=== PATIENT | female | born 1965 | race Caucasian/White ===

== ENCOUNTER → 2018-04-04 10:07 | Outpatient (CLI) | payer BC, SELFPAY ==
[2018-04-04 11:47] LABS: ALT 29 U/L (12-78); AST 12 U/L (15-37); Albumin 3.6 g/dL (3.4-5.0); Alkaline Phosphatase 42 U/L (46-116); Anion Gap 7.5 mmol/L (3-11); BUN 15 mg/dL (7-18); Bilirubin, Total 0.3 mg/dL (0.2-1.0); CO2 29.5 mmol/L (21.0-32.0); CREATININE 0.85 mg/dL (0.55-1.02); Calcium 8.9 mg/dL (8.5-10.1); Chloride 107 mmol/L (98-107); Glucose 87 mg/dL (70-100); HDL Cholesterol 54 mg/dL (40-60); LDL CHOLESTEROL 107 mg/dL (<100); Potassium 4.7 mmol/L (3.5-5.1); Sodium 144 mmol/L (136-145); Total Protein 6.8 g/dL (6.4-8.2); Triglyceride 45 mg/dL (30-150)
[2018-04-04 12:09] LABS: Cholesterol 168 mg/dL (50-200)
== END ==
DX: Z00.00 Encounter for general adult medical examination without abnormal findings (principal); E78.2 Mixed hyperlipidemia
CPT/HCPCS: 36415; 80053; 80061; 83721

== ENCOUNTER 2018-07-10 00:37 | Outpatient (CLI) | payer BC, SELFPAY ==
--- NOTE | 2018-07-10 07:50 | DI.MAMMO_ITS ---
SYMPTOM/DIAGNOSIS: SCREENING, Z12.31 MAMMOGRAM: 07/10/18 Mammograms were interpreted according to the usual protocol including computer analysis with CAD system, tomosynthesis and C view imaging. The breasts are heterogeneously dense. No dominant mass or clumped microcalcification identified in either breast. The current examination is compared with previous examinations including May 2017 and there has been no gross interval change in appearance in comparison with the previous studies. CONCLUSION: No specific evidence of malignancy at this time. Routine screening examinations are suggested at yearly intervals due to the family history of breast carcinoma. Category 1. Breast density category C. MQSA ASSESSMENT OF FINDINGS: Negative. Category 1. Patient will receive a letter notifying them of these results. Bi-RADS category C. The breasts are heterogeneously dense, which may obscure small masses.
== END 2018-07-10 00:57 ==
DX: Z12.31 Encounter for screening mammogram for malignant neoplasm of breast (principal); Z80.3 Family history of malignant neoplasm of breast
CPT/HCPCS: 77063; 77067

== ENCOUNTER 2019-11-09 09:15 | Outpatient (CLI) | payer BC, SELFPAY ==
[2019-11-09 10:45] LABS: ALT 24 U/L (14-59); AST 16 U/L (15-37); Alkaline Phosphatase 37 U/L (46-116); Anion Gap 6.1 mmol/L (3-11); BUN 15 mg/dL (7-18); Bilirubin, Total 0.5 mg/dL (0.2-1.0); CO2 32.9 mmol/L (21.0-32.0); CREATININE 0.91 mg/dL (0.55-1.02); Calcium 9.3 mg/dL (8.5-10.1); Chloride 105 mmol/L (98-107); Glucose 77 mg/dL (74-106); Potassium 4.1 mmol/L (3.5-5.1); Sodium 144 mmol/L (136-145); Total Protein 7.3 g/dL (6.4-8.2)
== END 2019-11-09 09:35 ==
DX: Z00.00 Encounter for general adult medical examination without abnormal findings (principal); Z13.228 Encounter for screening for other metabolic disorders
CPT/HCPCS: 36415; 80053

== ENCOUNTER 2020-03-08 09:42 | Outpatient (REF) | payer BC, SELFPAY ==
--- NOTE | 2020-03-08 09:30 | PAPFT_PTH ---
PATIENT: Yolanda Chavez LOC: [facility] U#:[id number] AGE/SX: 54/F ROOM: RE03/08/[address]: KENN Raymond : 1965 BED: DIS: 03/08/2020 SPEC #: [id number] RECD: 03/08/20 17:17 STATUS: ALYSON REErlinda #: [id number] DAVID: 03/08/20 09:[address]: Siri Porter DEPT: [facility] Cytology RECD BY: Clarissa Eubanks ENTERED: 03/08/20 17:17 SP TYPE: PAPFT ANABELLE DR: Huma Jay APRN Tissues: 1 - CX/ENDOCX FOR PAP SMEARS Procedures: PAP THIN PREP/UVM Screening HPV DNA PROBE Comments: [id number]
== END 2020-03-08 10:02 ==
LOC: LBN 09:42
PROVIDERS: Visit Provider Nurse Practitioner Family
DX: Z12.4 Encounter for screening for malignant neoplasm of cervix (principal); Z11.51 Encounter for screening for human papillomavirus (HPV)
CPT/HCPCS: 88142; 87624

== ENCOUNTER 2020-03-16 02:23 | Outpatient (CLI) | payer BC, SELFPAY ==
--- NOTE | 2020-03-16 06:45 | DI.US_ITS ---
EXAM: US PELVIS TRANSVAGINAL CLINICAL HISTORY: Menorrhagia,n92.0,excessive,frequent menstruation. TECHNIQUE: Transabdominal and transvaginal pelvic ultrasound was performed using standard protocol. COMPARISON: No exams were available for comparison FINDINGS: KIDNEYS: Kidneys are symmetric in size. No evidence of renal calculi. No evidence of hydronephrosis. No renal mass or cyst identified. UTERUS: Position: Anteverted. Size: 10 long by 3.8 AP by 4.3 transverse cm Endometrium: 0.7 cm. Normal for patient's menstrual status. Myometrium: Heterogeneous myometrium with at least 1 discrete fibroid measuring 1.6 x 1.1 x 1.3 cm lo cated in the anterior body. Cervix: Unremarkable. OVARIES: Right: 3.4 x 2.2 x 2.2 cm Cyst or mass: 2.1 x 1.9 x 1.8 cm simple cyst. Left: Status post left oophorectomy. DOPPLER: Color: Symmetric and uniform flow to the right ovary. No hyperemia. CUL-DE-SAC: Free fluid: None. Other: None. IMPRESSION: 1. Normal sonographic appearance of the kidneys. 2. Fibroid uterus. 3. Status post left oophorectomy. Simple right ovarian cyst which is likely physiologic. DATA REPOSITORY:
== END 2020-03-16 02:43 ==
PROVIDERS: Visit Provider Nurse Practitioner Family
DX: N92.0 Excessive and frequent menstruation with regular cycle (principal); D25.9 Leiomyoma of uterus, unspecified; Z90.721 Acquired absence of ovaries, unilateral; D27.0 Benign neoplasm of right ovary
CPT/HCPCS: 76830; 76856

== ENCOUNTER 2020-03-23 09:41 | Outpatient (REF) | payer BC, SELFPAY ==
--- NOTE | 2020-03-23 09:25 | ENDOMET_PTH ---
PATIENT: Yolanda Chavez LOC: N U#:[id number] AGE/SX: 54/F ROOM: RE03/23/[address]: Kaley Mitchell DO : 1965 BED: DIS: 03/23/2020 SPEC #: [id number] RECD: 03/23/20 12:42 STATUS: ALYSON REQ #: [id number] DAVID: 03/23/20 09:[address]: Kaley Mitchell DEPT: Surgical Specimen RECD BY: Clarissa Eubanks ENTERED: 03/23/20 12:43 SP TYPE: Endomet OTHR DR: Huma Jay APRN Tissues: 1 - ENDOMETRIUM BX/MESSI Procedures: GROSS AND MICRO LEVEL 4 Comments: [id number]
== END 2020-03-23 10:01 ==
LOC: LBN 09:41
PROVIDERS: Visit Provider Obstetrics & Gynecology
DX: Z12.79 Encounter for screening for malignant neoplasm of other genitourinary organs (principal); N95.1 Menopausal and female climacteric states
CPT/HCPCS: 88305

== ENCOUNTER 2020-03-24 02:57 | Outpatient (CLI) | payer BC, SELFPAY ==
[2020-03-24 13:31] LABS: ALT 21 U/L (14-59); AST 15 U/L (15-37); Albumin 3.7 g/dL (3.4-5.0); Alkaline Phosphatase 35 U/L (46-116); Anion Gap 8.6 mmol/L (3-11); BUN 16 mg/dL (7-18); Bilirubin, Total 0.5 mg/dL (0.2-1.0); CO2 28.4 mmol/L (21.0-32.0); CREATININE 0.96 mg/dL (0.55-1.02); Chloride 103 mmol/L (98-107); Glucose 85 mg/dL (74-106); Potassium 4.3 mmol/L (3.5-5.1); Sodium 140 mmol/L (136-145); TSH 1.84 uIU/mL (0.36-3.74); Total Protein 6.8 g/dL (6.4-8.2)
[2020-03-24 18:23] LABS: FSH 20.4 mIU/mL (See Note)
== END 2020-03-24 03:17 ==
PROVIDERS: Visit Provider Obstetrics & Gynecology
DX: Z00.00 Encounter for general adult medical examination without abnormal findings (principal); N95.0 Postmenopausal bleeding
CPT/HCPCS: 36415; 80053; 83001; 84443

== ENCOUNTER 2020-03-30 02:51 | Outpatient (CLI) | payer BC, SELFPAY ==
--- NOTE | 2020-03-30 11:01 | DI.MAMMO_ITS ---
EXAM: MG MAMMO SCREENING CLINICAL HISTORY: screening,Z12.39 TECHNIQUE: Mammograms were interpreted according to the usual protocol including computer analysis w [facility] CAD system, tomosynthesis and C-view imaging. COMPARISON: FINDINGS: The breasts are heterogeneously dense. No dominant mass or clumped microcalcification is identified in either breast. The current examination is compared with previous examinations including June 2018 and there has been no gross interval change in appearance comparison with the prior studies. IMPRESSION: No specific evidence of malignancy at this time. Routine screening examinations are suggested at yea rly intervals due to the family history of breast carcinoma. BI-RADS Cat 1 - Negative: Breast Density - Category C - Heterogeneously dense:
== END 2020-03-30 03:11 ==
PROVIDERS: Visit Provider Nurse Practitioner Family
DX: Z12.31 Encounter for screening mammogram for malignant neoplasm of breast (principal); R92.2 Inconclusive mammogram
CPT/HCPCS: 77063; 77067

== ENCOUNTER 2020-07-05 08:59 | Emergency (ER) | payer BC, SELFPAY ==
[2020-07-05 09:03] VITALS: BP 126/73; PULSE 79; RESP 18; TEMP 36.5; O2SAT 100
--- NOTE | 2020-07-05 09:12 | ED.GENADUL_ITS ---
Discharge Plan Disposition Patient Disposition: HOME Discharge Details Clinical Impression: Knee pain Primary Care Provider: Huma Jay ED Provider: Jarod Mcmanus Home Meds and New Rx's Prescriptions: Continued multivitamin [Daily Multi-Vitamin] 1 EACH tablet 1 ea PO DAILY RF: 0 loratadine-pseudoephedrine [Loratadine-D] 10-240 mg tablet extended release 24 hr 1 tab PO DAILY Qty: 30 RF: 6 Discharge Instructions Instructions: Muscle Strain (ED), Knee Pain (ED) Additional Instructions: X-ray and ultrasound did not reveal any obvious emergent process. Wear William wrap as needed, advance activity as tolerated. Crutches were declined at this time. Rest, elevate, cool and/or warm compresses every 2 hours for 20 minutes. Over-t he-counter Tylenol and/or Motrin as directed for discomfort. Please watch for new or worsening symptoms and return to the ER for any concerns. If you are not improving in the next 5-7 days, I have given you the name and number of our local orthopedic team. Otherwise I recommend following up with your primary care provider. Referrals: Jelani Meza MD [ [facility] STAFF PHYSICIAN] - Medical Decision Making 55-year-old female reports knee aching for the past several days, stepped awkwardly yesterday increasing pain now in the posterior calf. There is no warmth, erythema, swelling. There is no bony point tenderness. Patient is afebrile, she is without tachycardia or hypoxia. She appears well, nontoxic. Limited extension to full flexion. Clinically she has posterior calf discomfort as well as a positive Homans' sign. This certainly could be muscular in nature would like to rule out any bony abnormality and/or potential. Will obtain 4 view x-ray of the left knee as well as a left lower extremity ultrasound. Patient comfortable with this plan. Ultrasound read by radiology as negative for DVT. No evidence of Lee's cyst. X-ray read by radiology as minimal arthritic changes but no acute process. Discussed findings with patient. She is relieved. As above, negative for fracture, dislocation, DVT or Lee's cyst. Clinically no evidence of knee instability or septic joint. Discussed treatment options. Will place a William wrap. Patient declines crutches. We discussed conservative therapy and the im portance of following up with orthopedic in the next 5-7 days if she is not receiving adequate relief with conservative care. Otherwise she will follow up with her primary care provider. She was encouraged to return to the ER for new or worsening symptoms. Medical Records Medical records reviewed: Yes I reviewed the patient's medical records. HPI General Mode of arrival: ambulatory . Date/Time Provider Initiated Documentation: 07/05/20 09:00 . Limitations to Documentation: no limitations . Information obtained by: patient . HPI Narrative: This is a 55-year-old female who denies significant medical history. She reports that her left knee has been aching for several days, nontraumatic. It was feeling like it could potentially get out. Subsequently yesterday she states that she stepped awkwardly, falling to the ground. Now she reports the pain is worse in the posterior aspect of the knee and calf. She denies any other injury when she fell she denies chest pain or shortness of breath. Denies history of PE or DVT. She states the pain is mild at rest but worse with movement or bearing weight. She did take [id number] medication last night with some relief. She denies any pain radiating up her thigh into her hip or down from her calf into her ankle or foot. Denies fever, redness, warmth. Related Data Home Medications Medication Instructions Recorded Confirmed multivitamin [Daily Multi-Vitamin] 1 ea PO DAILY 11/02/13 07/05/20 loratadine-pseudoephedrine ER 10 1 tab PO DAILY #30 tab-cap 02/18/20 07/05/20 mg-240 mg tablet,extended [id number] Previous Rx's Medication Instructions Recorded loratadine-pseudoephedrine ER 10 1 tab PO DAILY #30 tab-cap 25/20 mg-240 mg tablet,extended [id number] Allergies Allergy/AdvReac Type Severity Reaction Status Date / Time red (food color) Allergy Intermediate Mouth Verified 07/05/20 09:08 chino, tongue swelling etienne flavor Allergy Unknown Verified 07/05/20 09:08 erythromycin base AdvReac Intermediate Stomache Verified 07/05/20 09:08 General Stated Complaint: Orthopedic ZAIDA: 3 Review of Systems Constitutional Constitutional: Denies fever(s) and Denies weakness Cardiovascular Cardiovascular: Denies chest pain and Denies dyspnea Respiratory Respiratory: Denies dyspnea Musculoskeletal Musculoskeletal: Denies back pain, Reports arthralgias, Denies joint swelling, Denies numbness and Denies tingling Integumentary/Breasts Skin/Breast: Denies erythema Neurologic Neurologic: Denies numbness, Denies tingling and Denies weakness [facility] Medical History Allergic reaction (09/19/15) Chronic cough (10/16/16) Chronic type B viral hepatitis Hep B surface antigen Negative during 2000 Family history of malignant neoplasm of ovary (10/28/12) Family hx-breast malignancy (10/28/12) Globus sensation (11/04/13) Increased body mass index (BMI) Menopause syndrome Otalgia (11/04/13) Perimenopause Post-menopausal bleeding Tonsillitis (11/04/13) Surgical History Colonoscopy - IV Sedation (09/24/16) Oophrectomy, Left (~1997) Dermoid cyst varicosities removed Family History Mother , 63 Breast cancer Ovarian cancer Father , 78 Heart disease Prostate cancer Kidney cancer, primary, with metastasis from kidney to other site Sister No problems noted. Brother Diabetes Heart disease Maternal Grandfather No problems noted. Paternal Grandfather No problems noted. Maternal Grandmother Uterine cancer Paternal Grandmother Heart disease Son No problems noted. Daughter No problems noted. Social History Smoking/Tobacco Use Status: Former Tobacco Use Second Hand Exposure: Yes Smoking risk assessment performed?: Yes Alcohol Intake: former Drug use: Never Substance use type: does not use Counseling given: No Counseling provided: none Caregiver/Support person: No Household members: spouse and children Housing: house Communication Needs: None Do you need help understanding health information?: Never Pets and animals: Yes Pets and animals: cat(s) and dog(s) Sexually active: Yes Do you think of yourself as: straight/heterosexual Current gender identity: female What is your relationship status?: How often do you talk on the phone with friends or family?: once per week How often do you get together with friends or relatives?: once per week How often do you attend congregation or mu-ism services?: decline to answer Do you belong to any clubs or organized social groups?: decline to answer Panel score (0-1 are the most socially isolated patients): 1 What type of physical activity do you participate in: weight lifting and other Details: gym Duration: decline to answer Frequency: 3-4 times per week Consuelo/Adventist: No Special consuelo needs: No Seatbelt use: always Helmet use: Yes Helmet use: always Drive intox or ride w/intox public transit bus driver: No Do you feel safe at home: Yes Do you feel safe in your relationship?: Yes Exam Const General: cooperative, healthy appearing, comfortable and no acute distress Orientation: alert and awake HENMT Head: normal to inspection, normocephalic and atraumatic Mouth: moist mucous membranes Eyes Conjunctivae: conjunctivae normal Sclera: sclerae normal Neck Neck: normal visual inspection, full ROM, trachea midline and supple Resp Effort & Inspection: normal respiratory effort and able to speak in complete sentences Auscultation: clear to auscultation bilaterally Cardio Rate: regular rate Rhythm: regular rhythm Skin General skin exam: no rashes or lesions noted Neuro General: patient alert, patient awake, moves all extremities and no focal motor deficits Sensory Exam: no sensory deficits noted Extrem Right upper extremity: normal to inspection, full ROM and normal capillary refill Left upper extremity: normal to inspection, full ROM and normal capillary refill Right lower extremity: normal to inspection, full ROM and normal capillary refill Left lower extremity: normal capillary refill, hip/thigh Details: normal to inspection and normal ROM; no tenderness and no swelling, knee Details: normal to inspection, tenderness, abnormal ROM (Full flexion, limited extension), knee ligament exam normal and other (Positive Homans' sign); no swelling and no ecchymosis, lower leg Details: normal to inspection, tenderness Location: of the posterior calf and no edema; no erythema, no localized swelling and no palpable cords and ankle Details: normal to inspection; no tenderness and no swelling; no cyanosis and no edema Psych Appearance: grossly normal Mental Status: mental status grossly normal Course Vital Signs Vital signs: Vital Signs Temperature 36.5 C 07/05/20 09:03 Pulse 79 07/05/20 09:03 Respiratory Rate 18 07/05/20 09:03 Blood Pressure 126/73 07/05/20 09:03 Pulse Oximetry 100 07/05/20 09:03 Temperature 36.5 C 07/05/20 09:03 Temperature Source Skin 07/05/20 09:03 Pulse 79 07/05/20 09:03 Respiratory Rate 18 07/05/20 09:03 Respiratory Effort Non-Labored 07/05/20 09:07 Blood Pressure 126/73 07/05/20 09:03 Blood Pressure Position Sitting 07/05/20 09:03 Pulse Oximetry 100 07/05/20 09:03 Oxygen Delivery Method Room Air 07/05/20 09:03 Oxygen Flow Rate 0 07/05/20 09:03 Pain Level 8 07/05/20 09:03 Comment 07/05/20 09:03
--- NOTE | 2020-07-05 09:15 | DI.RAD_ITS ---
EXAM: XR KNEE LT 4V+ CLINICAL HISTORY: Stepped awkwardly, pain. TECHNIQUE: 2D digital imaging was performed. COMPARISON: No exams were available for comparison FINDINGS: BONES: No acute fracture is present. No bony destructive lesion is seen. JOINTS: The knee is normally aligned. No joint effusion is seen. Mild degenerative changes are seen i n the spine characterized by periarticular spurring. SOFT TISSUE: Normal. IMPRESSION: No acute fracture or dislocation. DATA REPOSITORY: RADIATION DOSE DELIVERED:
--- NOTE | 2020-07-05 09:15 | DI.US_ITS ---
EXAM: US LOWER EXTREMITY VENOUS LT CLINICAL HISTORY: Calf pain, posterior knee pain TECHNIQUE: Left lower extremity venous ultrasound performed using grayscale, color-flow, and spectra l Doppler analysis. COMPARISON: No exams were available for comparison FINDINGS: The left common femoral, femoral and popliteal veins demonstrate normal compressibility, augmentation , and color Doppler. The posterior tibial veins are patent. The saphenofemoral junction is unremarka ble. There is no evidence of a Lee cyst. The soft tissues are unremarkable. IMPRESSION: No DVT. Findings were discussed with the emergency department on the date of the examination. DATA REPOSITORY:
== END 2020-07-05 11:25 | disposition home or self-care (01) ==
PROVIDERS: Emergency Provider Physician Assistant
DX: M25.562 Pain in left knee (principal)
CPT/HCPCS: 99284; 73564; 93971; 99283

== ENCOUNTER 2021-02-06 19:08 | Outpatient (REF) | payer BC, SELFPAY | END 2021-02-06 19:09 | disposition home or self-care (01) | LOC: LBN 19:08 | DX: N89.8 Other specified noninflammatory disorders of vagina (principal); N39.0 Urinary tract infection, site not specified | CPT/HCPCS: 87086; 87480; 87510; 87660 ==

== ENCOUNTER 2021-03-31 03:50 | Outpatient (CLI) | payer BC, SELFPAY ==
--- NOTE | 2021-03-31 10:32 | DI.MAMMO_ITS ---
Exam(s) MAMMO SCREENING EXAM: MAMMO SCREENING CLINICAL HISTORY: screening,Z12.39 TECHNIQUE: Mammograms were interpreted according to the usual protocol including computer analysis w [facility] CAD system, tomosynthesis and C-view imaging. COMPARISON: FINDINGS: The breasts is are heterogeneously dense. No dominant mass or suspicious clumped microcalcification is identified in either breast. Current examination is compared with previous examinations including March 2020 and there has been no gross interval change appearance comparison with the prior studies . IMPRESSION: No specific evidence of malignancy at this time. Routine screening examinations are suggested at yea rly intervals due to the family history of breast carcinoma. BI-RADS Category 1 - Negative Breast Density - Category C - Heterogeneously dense
== END 2021-03-31 04:10 ==
PROVIDERS: Visit Provider Nurse Practitioner Family
DX: Z12.31 Encounter for screening mammogram for malignant neoplasm of breast (principal); Z80.3 Family history of malignant neoplasm of breast
CPT/HCPCS: 77063; 77067

== ENCOUNTER 2021-07-12 03:31 | Outpatient (CLI) | payer BC, SELFPAY ==
[2021-07-12 07:38] LABS: HCT 39.4 % (36.0-46.0); HGB 12.6 g/dL (11.2-15.7); MCH 29.2 pg (27.0-33.0); MCV 91.4 fL (80-95); MPV 12.3 fL (8.0-11.0); Platelet Count 180 10^3/uL (130-400); RBC 4.31 10^6/uL (3.93-5.22); RDW 12.7 % (11.7-14.6)
[2021-07-12 08:38] LABS: ALT 22 U/L (14-59); AST 12 U/L (15-37); Albumin 4.1 g/dL (3.4-5.0); Alkaline Phosphatase 50 U/L (46-116); Anion Gap 6.9 mmol/L (3-11); BUN 16 mg/dL (7-18); Bilirubin, Total 0.4 mg/dL (0.2-1.0); CO2 31.1 mmol/L (21.0-32.0); CREATININE 0.9 mg/dL (0.55-1.02); Calcium 9.3 mg/dL (8.5-10.1); Chloride 109 mmol/L (98-107); Creatine Kinase 97 U/L (26-192); Glucose 81 mg/dL (74-106); Potassium 4.1 mmol/L (3.5-5.1); Sodium 147 mmol/L (136-145); TSH (W/Ref FT4) 3.03 uIU/mL (0.36-3.74); Total Protein 7.6 g/dL (6.4-8.2)
[2021-07-12 08:45] LABS: C-Reactive Protein < 0.05 mg/dL (0.0-0.3)
[2021-07-12 08:59] LABS: Calculated LDL 83 mg/dL (<100); Cholesterol 151 mg/dL (<200); HDL Cholesterol 58 mg/dL (40-60); Triglyceride 51 mg/dL (<150)
[2021-07-13 10:00] LABS: Lyme Ab w Rflx to Lyme Confirm Negative (Negative)
[2021-07-13 11:06] LABS: Hepatitis C Ab w Rflx HCV PCR Negative (Negative)
[2021-07-13 11:23] LABS: HIV-1/2 Ag & Ab Screen Negative (Negative)
== END 2021-07-12 03:32 | disposition home or self-care (01) ==
LOC: LBO 03:32
PROVIDERS: Visit Provider Family Medicine
DX: I10 Essential (primary) hypertension (principal); M25.59 Pain in other specified joint; M79.18 Myalgia, other site; M25.562 Pain in left knee; Z13.6 Encounter for screening for cardiovascular disorders; Z13.29 Encounter for screening for other suspected endocrine disorder; Z11.59 Encounter for screening for other viral diseases; Z11.4 Encounter for screening for human immunodeficiency virus [HIV]
CPT/HCPCS: 36415; 80053; 80061; 82550; 85027; 86803; 87389; 84443; 86140; 86618

== ENCOUNTER 2021-09-20 14:42 | Outpatient (CLI) | payer BC, SELFPAY ==
--- NOTE | 2021-09-20 14:30 | DI.RAD_ITS ---
Exam(s) XR SHOULDER RT COMPLETE 2+V EXAM: XR SHOULDER RT COMPLETE 2+V CLINICAL HISTORY: shoulder pain. TECHNIQUE: 2D digital imaging was performed. COMPARISON: No exams were available for comparison FINDINGS: No evidence of fracture or dislocation. No obvious degenerative changes in the glenohumeral joint al though there does appear to be a small degenerative cysts in the greater tuberosity, similar to the o pposite side. There no calcifications in the non diminished subacromial space. Some degenerative ch anges noted in the AC joint. Bone density normal. IMPRESSION: DATA REPOSITORY: RADIATION DOSE DELIVERED:
--- NOTE | 2021-09-20 14:30 | DI.RAD_ITS ---
Exam(s) XR SHOULDER LT COMPLETE 2+V EXAM: XR SHOULDER LT COMPLETE 2+V CLINICAL HISTORY: shoulder pain. TECHNIQUE: 2D digital imaging was performed. COMPARISON: CR XR SHOULDER RT COMPLETE 2+V from 09/20/2021 FINDINGS: No evidence of fracture or dislocation. Small degenerative subarticular cyst is noted in the greater tuberosity, similar to the opposite side. No joint space narrowing at the glenohumeral joint. AC j oint exhibits some degenerative change. No calcifications in the non diminished subacromial space. Bone density normal. No osseous lesions. IMPRESSION: DATA REPOSITORY: RADIATION DOSE DELIVERED:
== END 2021-09-20 14:43 | disposition home or self-care (01) ==
LOC: DIORS 14:42
PROVIDERS: Visit Provider Physician Assistant
DX: M25.511 Pain in right shoulder (principal); M25.512 Pain in left shoulder; M25.811 Other specified joint disorders, right shoulder; M25.812 Other specified joint disorders, left shoulder
CPT/HCPCS: 73030

== ENCOUNTER 2021-09-27 01:21 | Outpatient (CLI) | payer BC, SELFPAY ==
--- NOTE | 2021-09-27 07:45 | DI.MRI_ITS ---
Exam(s) MR UPPER JOINT LT WO EXAM: MR UPPER JOINT LT WO CLINICAL HISTORY: LEFT SHOULDER PAIN,STRAIN ROTATOR CUFF,BICEPS TENDINITIS,M75.102,S46.019A,. TECHNIQUE: Multiplanar multisequence MRI was performed. COMPARISON: Left shoulder 20 September 2021 FINDINGS: BONES: There is no fracture or contusion pattern. There is some spurring at the greater and lesser tu berosities. JOINTS: The acromioclavicular joint shows mild inferior spurring. There is spurring at the tip of th e acromion.. The glenohumeral joint shows a small amount of fluid. TENDONS: Supraspinatus: Full-thickness tear with slight retraction of the mid supraspinatus tendon. Infraspinatus: Unremarkable. Subscapularis: Unremarkable. Teres Minor: Unremarkable. Biceps and [place]: Thickening and edema in the proximal long head of the biceps tendon as it passes a nterior to the humeral head. No full-thickness tear. MUSCLES: Unremarkable. No significant atrophy. GLENOID LABRUM: Unremarkable on this noncontrast examination. SOFT TISSUES: Unremarkable. OTHER: Small amount of fluid in the subacromial subdeltoid bursa as well as subcoracoid bursa IMPRESSION: Focal full-thickness tear with slight retraction of the mid supraspinatus tendon. Thickening and edema of the proximal long head of the biceps tendon, partial tear versus tendinosis. DATA REPOSITORY:
== END 2021-09-27 01:41 ==
PROVIDERS: Visit Provider Student in an Organized Health Care Education/Training Program
DX: M25.512 Pain in left shoulder (principal); M25.412 Effusion, left shoulder; M75.22 Bicipital tendinitis, left shoulder; S46.012A Strain of muscle(s) and tendon(s) of the rotator cuff of left shoulder, initial encounter; X58.XXXA Exposure to other specified factors, initial encounter
CPT/HCPCS: 73221

== ENCOUNTER 2021-10-16 01:52 | Outpatient (CLI) | payer BC, SELFPAY ==
--- NOTE | 2021-10-16 08:00 | DI.MRI_ITS ---
Exam(s) MR UPPER JOINT RT WO EXAM: MR UPPER JOINT RT WO CLINICAL HISTORY: persistent pain,rt rotator cuff tear,m75.101 TECHNIQUE: Multiplanar multisequence MRI of the shoulder was performed. COMPARISON: CR XR SHOULDER LT COMPLETE 2+V from 09/20/2021 MR MR UPPER JOINT LT WO from 09/27/2021 FINDINGS: MARROW:No evidence of fracture, Hill-Sachs deformity nor bony Bankart lesion. No ominous osseous les ions. ROTATOR CUFF MECHANISM: AC JOINT/ACROMIUM: Moderate degenerative changes in the AC joint. Some impingement.. There is no evidence of os acromiale. Supraspinatus: There is a full-thickness tear of the supraspinatus tendon just above the greater tube rosity. This is associated with mild retraction musculotendinous junction. Width of the tear is 13 millimeters. AP measurement is 12 millimeters. There is no true muscle atrophy. Infraspinatus: Tendinosis signal. No high-grade tear. No atrophy Teres Minor: Intact. No evidence of tear nor muscle atrophy. Subscapularis/anterior cuff: Tendinitis signal. No full-thickness tear. BICEPS TENDON: There is vertical split tearing within the intertubercular groove. There is partial t earing the intra-articular tendon also noted. No tenosynovitis. LABRUM: There is some tearing of the superior labrum posterior to the biceps insertion region. Mild increased signal also seen in the posterior labrum. Anterior labrum appears intact inferior labrum i s intact. No evidence of paralabral cyst. Inferior glenohumeral ligament appears intact. No obvious bony Bankart lesion nor avulsion of the anteroinferior labrum. GLENOHUMERAL JOINT: Mild degenerative changes. No prominent joint effusion. No osteophytes. No deg enerative subarticular cysts. No evidence of capsular tear. The inferior glenohumeral ligament is in tact. QUADRILATERAL SPACE: No evidence of mass in the region of the axillary nerve and dorsal circumflex hu meral vessels. Visualized triceps muscle at this level appears unremarkable. IMPRESSION: 1. There is a full-thickness tear of the supraspinatus-rotator cuff tendon. Dimensions of tear as fo llows. No muscle atrophy. AC joint degenerative changes. 2. Tendinosis signal evident in the infraspinatus but no high-grade tear of the infraspinatus. Also some signal abnormality in anterior cuff-subscapularis but no high-grade tear. 3. Biceps tendon tearing noted (but no displacement). 4. Labral tearing as described above. No evidence of paralabral cyst. No bony Bankart lesion. 5. Mild glenohumeral joint degenerative changes. No glenohumeral joint effusion. No loose intra-ar ticular bodies. DATA REPOSITORY:
== END 2021-10-16 02:12 ==
PROVIDERS: Visit Provider Student in an Organized Health Care Education/Training Program
DX: M75.101 Unspecified rotator cuff tear or rupture of right shoulder, not specified as traumatic (principal); M25.511 Pain in right shoulder; M19.011 Primary osteoarthritis, right shoulder; M75.81 Other shoulder lesions, right shoulder
CPT/HCPCS: 73221

== ENCOUNTER 2021-10-17 03:16 | Outpatient (CLI) | payer BC, SELFPAY ==
[2021-10-17 14:58] LABS: Source Nasal/Nares
[2021-10-17 17:12] LABS: COVID-19 PCR Negative (Negative)
== END 2021-10-17 03:17 | disposition home or self-care (01) ==
LOC: LBO 03:17
PROVIDERS: Visit Provider Student in an Organized Health Care Education/Training Program
DX: Z20.822 Contact with and (suspected) exposure to COVID-19 (principal)
CPT/HCPCS: 87635

== ENCOUNTER 2021-10-19 09:56 | Day surgery (SDC) | payer BC, SELFPAY ==
[2021-10-19] VITALS (11 sets, daily range): BP systolic 94–132; BP diastolic 55–76; PULSE 45–86; RESP 12–22; TEMP 36.2–36.6; TEMPC 36.3; O2SAT 96–100; BMI 20.9
--- NOTE | 2021-10-19 10:41 | ANES.PREOP_ITS ---
General Info Date of Service Date Performed: 10/19/21 Height: 5 ft 5 in Weight: 57.2 kg Body Mass Index (BMI): 20.9 Surgical Procedure: Operation Date: 10/19/21 13:40 Proposed Procedure Side Surgeon p Shoulder Rotator Cuff Arthroscopic w/Extensive Debridement,Biceps Tenodesis,Subacromial Decompression Left Rito Romero MD Meds Allergies and Home Medications Allergies Allergy/AdvReac Type Severity Reaction Status Date / Time red (food color) Allergy Intermediate Mouth Verified 10/19/21 10:11 chino, tongue swelling etienne flavor Allergy Unknown Verified 10/19/21 10:11 erythromycin base AdvReac Intermediate [place] Verified 10/19/21 10:11 Home Medication Medication Instructions Recorded loratadine-pseudoephedrine ER 10 1 tab PO DAILY #30 tab-cap 02/18/20 mg-240 mg tablet,extended [id number] (Loratadine-D) aspirin 81 mg tablet,delayed 81 mg PO DAILY 14 Days #14 tab 10/19/21 release naproxen 250 mg tablet 250 - 500 mg PO BID PRN #40 tab 10/19/21 oxycodone 5 mg tablet 5 - 10 mg PO Q4H PRN #18 tab MDD 10/19/21 30 mg Current Visit Medications: Current Medications Generic Name Dose Route Start Last Admin Trade Name Freq PRN Reason Stop Dose Admin Ringer's Solution 1,000 mls @ 100 mls/hr 10/19/21 06:00 IV 11/17/21 23:59 INFUSION NOEL Cefazolin Sodium/Dextrose 2 gm in 50 mls @ 100 mls/hr 10/19/21 06:00 Ancef Duplex IVPB 10/19/21 16:00 PREOP [facility] IV Miscellaneous Supplies 1 each 10/19/21 06:00 Iv Access IV 11/17/21 23:59 DIRECTED NOEL Naproxen 250 - 500 mg 10/19/21 10:23 Naproxen 500 Mg Tab PO BID PRN PRN Oxycodone HCl 5 - 10 mg 10/19/21 10:23 Oxycodone 5 Mg Tab PO Q4H PRN PRN Sodium Chloride 0 ml 10/19/21 06:00 Normal Saline Flush 10 Ml Syr IV 11/17/21 23:59 PRN PRN Sodium Chloride 0 ml 10/19/21 06:00 Normal Saline 10 Ml Vial IJ 11/17/21 23:59 DIRECTED PRN Sterile Water 0 ml 10/19/21 06:00 Water,Injection,Sterile 10 Ml Vial IJ 11/17/21 23:59 DIRECTED PRN PFSH Active Problems Active Problems: Problem Status Onset Code Umbilical hernia without mention of obstruction or gangrene K42.9 Indirect left inguinal hernia K40.90 Impingement syndrome of both shoulders M75.41, M75.42 Bilateral shoulder bursitis M75.51, M75.52 Biceps tendinitis of right shoulder M75.21 Right rotator cuff tear M75.101 Left rotator cuff tear M75.102 Biceps tendinitis of left shoulder M75.22 Perimenopause N95.1 Post-menopausal bleeding N95.0 Menopause syndrome N95.1 Increased body mass index (BMI) R63.8 Knee pain, left M25.562 Allergic reaction 09/19/15 T78.40XA Chronic cough 10/16/16 R05 Family history of malignant neoplasm of ovary 10/28/12 Z80.41 Family hx-breast malignancy 10/28/12 Z80.3 Globus sensation 11/04/13 F45.8 Otalgia 11/04/13 H92.09 Tonsillitis 11/04/13 J03.90 Medical History Medical History Chronic type B viral hepatitis Hep B surface antigen Negative during 2000 Surgical History Surgical History Colonoscopy - IV Sedation (09/24/16) Oophrectomy, Left (~1997) Dermoid cyst varicosities removed Tobacco Smoking/Tobacco Use Status: Former Tobacco Use Second hand exposure: Yes Alcohol Alcohol Intake: former Substance Use Substance use: Never Substance use type: does not use Counseling provided: none Vital Signs and Lab Results Vital Signs Most Recent Vital Signs in EMR: Most Recent Vital Signs Temp Pulse Resp BP Pulse Ox 36.5 C 51 L 16 105/55 L 100 10/19/21 10:14 10/19/21 10:14 10/19/21 10:14 10/19/21 10:14 10/19/21 10:14 Lab Results Blood Type / Crossmatch: No Data to Display Complete Blood Count: No Data to Display Complete Metabolic Panel: No Data to Display Liver Function Panel: No Data to Display Coagulation Panel: No Data to Display Cardiac Panel: No Data to Display Arterial Blood Gas: No Data to Display Venous Blood Gas: No Data to Display Pancreas Panel: No Data to Display Thyroid Panel: No Data to Display Infectious Disease: Coronavirus (COVID-19)(PCR) Negative (Negative) 10/17/21 11:00 10/17/21 Coronavirus 2019 Source Nasal/Nares 10/17/21 11:00 10/17/21 Blood Cultures: No Data to Display Toxicology Panel: No Data to Display Anesthesia Assessment and Plan Anesthesia History Personal History: No History of Anesthesia Complications Family History: No Family History of Anesthesia Complications Exercise Tolerance Exercise Tolerance: Metabolic Equivalents>4 Pertinent Negatives Pertinent Negatives: No Symptoms of GERD, No Major Cardiovascular Symptoms or Complaints, No Major Pulmonary Symptoms or Complaints and No History of CVA/TIA Cardiac & Pulmonary Exam Cardiac Exam: Normal S1/S2 Heart Sounds Pulmonary Exam: Clear Bilateral Breath Sounds Implantable Cardiac Device Does patient have a Pacemaker or an ICD?: No Airway Exam Known Difficult Airway: No Mallampati Class: 2 Mouth Opening: Normal (> 3cm) Thyromental Distance: Greater than 3 cm Neck Range of Motion: Full ROM Neck Circumference: Normal Teeth Condition: Normal Dentition ASA Classification ASA Score: ASA 2 Emergency Case?: No NPO Status NPO Status: NPO Clears >2 hours, Solids >8 hours Anesthesia Plan Resuscitation Status: Full Code Anesthesia Technique: General Anesthesia Airway Planned: Endotracheal Tube Pain Management: Surgeon and patient request nerve block Monitors Used: Standard Monitors Preoperative Comments:: Patient last period in april of 2021. Has not fully gone through menopause. We are currently obtaining an HCG. Presume negative unless added addendum.
[2021-10-19] MEDS: Lactated Ringers 1,000 ML 100 ML IV (10:45)
--- NOTE | 2021-10-19 11:29 | W.ANESNERVE ---
Nerve Block Single Injection Procedure Date and Time Date Performed: 10/19/21 Procedure Start: 11:29 Location Where Procedure Performed Procedure Location: Day Surgery Unit Reason Performed: Postoperative Analgesia Requesting Provider: Rito Romero Timeout Performed Timeout Performed: Yes Monitoring Used ECG, Blood Pressure and SpO2 Sterility Sterility: Hand Hygiene, Surgical Cap, Surgical Mask, Sterile Gloves, Eye Protection and Chlorhexidine Sedation Given During Procedure Sedation Given (Indicate Dose Given): Versed IV Dose:: 2 mg Patient Mental Status Patient Mental Status: Sedate with meaningful communication Nerve Block 1st Nerve Block: Laterality: Left Block Type: Interscalene Needle / Catheter Used: 100mm SonoPlex II Local Anesthetic Bolus (Indicate Dose Given): Lidocaine used for local infiltration of skin, Injected in 3-5ml increments after negative blood aspiration, Bupivacaine 0.5% Dose:: 10 cc and Exparel Dose:: 10 cc Additives (Indicate Dose Given): None Ultrasound: Sterile probe cover and gel used Ultrasound Image Saved?: Yes Nerve Stimulator: Not Used Paresthesia: None Post Procedure Pain score (0-10): 0 Procedure Tolerated: No Complications and Patient tolerated well Procedure Outcome: Successful Performed By: Burak Lopez
--- NOTE | 2021-10-19 12:00 | W.PM.OP ---
Date of service: 10/19/21 Time of Service: 16:41 Operative Note Operative Note DATE OF PROCEDURE: 10/19/21 PRE-OP DIAGNOSIS: Left: 1. Rotator cuff tear 2. LHB tendinopathy 3. Bursitis 4. Impingement POST-OP DIAGNOSIS: same PROCEDURE: Left: 1. Rotator cuff repair, CPT# 30204. This involved repair of the subscapularis and supraspinatus using anchors and sutures to reattach the rotator cuff back to the footprint of the lesser and greater tuberosity. 2. Arthroscopic biceps tenodesis, CPT# 24490. This involved arthroscopically suturing and reattaching the long head of the biceps tendon to the proximal humerus at the anterior superior aspect of the greater tuberosity with a screw at the correct tension. 3. Extensive debridement, CPT# 45335. This involved using arthroscopic hand instruments, power instruments, and radiofrequency instruments to release the long head of the biceps tendon and debride areas of labral tearing, synovitis, and chondromalacia about the biceps groove within the glenohumeral joint anteriorly, superiorly and posteriorly. 4. Subacromial decompression with partial acromioplasty, CPT# 50007. This involved using arthroscopic power instruments and a radiofrequency wand to complete a bursectomy and remove bone spurs on the undersurface of the acromion. The assistant track coach was medically required in order to help assist in techniques above, which require positioning the arm, holding the arthroscope, and manipulating multiple instruments and sutures at the same time. This cannot be done without the help of an experienced assistant track coach. SURGEON: Rito Romero SAXOPHONE ASSEMBLER: Iris Sharma Refer to Anesthesia Record ESTIMATED BLOOD LOSS: 10 PATHOLOGY: none sent COMPLICATIONS: None Patient was transported to: PACU Patient's condition: stable Implants: Arthrex: 4.75mm SwiveLocks x 2 Indications: The patient was diagnosed with the above conditions and appropriately indicated for surgical intervention. Please see complete medical record for details. Findings: Exam under anesthesia: Full range of motion, no instability Glenohumeral joint: Significant biceps split in longitudinal tear and fraying with about 50% tear intra-articular segment. Degenerative type SLAP tear. Significant anterior and superior synovitis. Upper margin partial subscapularis tear. Anterior and posterior labral fraying tearing as well. Subacromial space: Significant bursitis. Moderate undersurface acromial impingement narrowing on the rotator cuff. Small full-thickness minimally retracted supraspinatus rotator cuff tear. Procedure Description: In the operating room, general anesthesia was induced. Bilateral shoulders were examined. The patient was positioned in the beachchair position. All bony prominences were well-padded. Preoperative antibiotics were administered. The shoulder was prepped and draped in the usual sterile fashion. The correct patient, procedure, and side of the procedure were all verified prior to incision. Starting through the posterior portal a standard complete diagnostic arthroscopy was performed of the glenohumeral joint including inspection of the long head of the biceps, anterior and superior labrum, subscapularis tendon, supraspinatus and infraspinatus tendons, and axillary recess. The glenoid and humeral head cartilage as well as the posterior labrum were inspected from an anterior viewing portal. Significant findings and interventions noted above. There is significant debridement of anterior and superior synovitis as well as anterior superior and posterior labral tearing. An anterior portal was established as well as a superior anterior lateral portal through the rotator cuff tear. The biceps tendon was prepared for loop intact biceps tenodesis, but there was inadequate space given the diminutive shoulder side for all inside technique. Instead the bicep tendon was graft, arthroscopic scissors were used to release it appropriately from the superior labrum anchor and the biceps tendon was withdrawn out the anterior portal. A suture tape fiber loop was used to prepare the end of the biceps tendon for reattachment arthroscopically after debriding significant split tearing fraying and partial tearing to a stable margin. With the biceps tendon withdrawn out the superior anterolateral portal and temporarily down the bicipital groove, the subscapularis could be inspected. There was partial upper margin tearing and lift off of the lesser tuberosity. The lesser tuberosity region had some chondromalacia was debrided to a bony bed to optimize bone tendon healing. The subscapularis was secured in the upper corner with a suture tape FiberLink to establish traction and reduction while a FiberTape was placed more centrally in the tendon tear. The link was removed and the tapes brought out anteriorly. The undersized punch used to localize suture anchor in the appropriate spot for repair of the lesser tuberosity with the arm in neutral position. The tapes were secured to a suture anchor with excellent bone fit and appropriate tension and congregational of the subscapularis. Appropriate debridement of the anterior capsule and [facility] was confirmed. Starting through the posterior portal, the arthroscope was directed into the subacromial space. A lateral 50 yard line lateral portal was created. A combination of power instruments and a radiofrequency ablator were used to debride bursitis anteriorly, posteriorly, and laterally as well as expose and smooth bone spurring on the undersurface of the acromion. The coracoacromial ligament was preserved. The bursectomy was completed viewing laterally and working from posteriorly and the rotator cuff was thoroughly inspected with findings noted above. A Lakesha cannula was inserted laterally. Given the diminutive shoulder size once again modified approach had to be taken with the arthroscope posterior for viewing and the anterior portal redirected into the subacromial space with an 8 x 3 mm passport inserted. Given the small tear nonretracted tear, decision was made to proceed with a single anchor repair. A fiber tape was passed using the self retrieving suture passer anterior and posteriorly at the appropriate medial footprint margin of the tear and an inverted horizontal mattress fashion with appropriate reduction confirmed with the rigid Lakesha cannula insert to a lateral anchor. The biceps tendon repair sutures were then withdrawn through the full-thickness tear out the lateral cannula as well. The biceps tendon was positioned at the superior aspect of the bicipital groove for appropriate tension. The undersized punch was used once again and all supraspinatus and biceps repair sutures passed through the suture anchor, appropriately tensioned, and suture anchor deployed with good fixation. The repair was inspected through range of motion as well as the biceps tenodesis both demonstrated excellent dissection strength and reduction across the greater tuberosity margin. The shoulder was drained of arthroscopic fluid. All portal sites were copiously irrigated. These incisions were closed using 3-0 Monocryl in a buried fashion and then covered with Mastisol, Steri-Strips, Xeroform, dry gauze, and ABDs. The dressings were covered and secured with Medipore tape. The operative extremity was placed into a sling for immobilization. The patient awoke from anesthesia without complication and was transferred to the recovery room in a stable condition.
--- NOTE | 2021-10-19 12:07 | W.ANESPOSTOP ---
Postoperative Evaluation Date, Time and Location Date Performed: 10/19/21 Time Performed: 15:30 Patient Location: Day Surgery Unit Vital Signs Most Recent Imported Vital Signs: Most Recent Vital Signs Temp Pulse Resp BP Pulse Ox 36.6 C 45 L 14 111/62 98 10/19/21 11:14 10/19/21 11:35 10/19/21 11:35 10/19/21 11:35 10/19/21 11:35 Most Recent Manually Entered Vital Signs: Adult Blood Pressure: 119/70 Heart Rate: 72 Respirations: 12 Oxygen Saturation (%): 98 Temperature (C): 36.3 C Pain Score (0-10 Scale): 0 Pain Score Most Recent Pain Score: Most Recent Pain Score Pain Level 0 10/19/21 11:35 Assessment Mental Status: Awake (Alert & Oriented to Patient Baseline) Airway and Respiratory Function: Patent airway with normal (patient baseline) respiratory exam Cardiovascular Function: Hemodynamically Stable Hydration Status: Adequately Hydrated Nausea & Vomiting: No Nausea or Vomiting Pain: Pt. Denies Any Pain Peripheral Nerve Block: Patient did not receive a nerve block
[2021-10-19] MEDS: ceFAZolin 2 GM/50 ML BAG IVPB (12:42)
[2021-10-19] MEDS: EPINEPHrine 30 MG/30 ML VIAL (13:29)
--- NOTE | 2021-10-19 14:25 | PDOC.DSDIS_ITS ---
Discharge Plan Disposition Patient Disposition: HOME Condition: Stable Discharge Details Reason For Visit: Left shoulder surgery Attending Provider: Rito Romero Primary Care Provider: Huma Jay Home Meds and New Rx's Prescriptions: New aspirin 81 mg tablet,delayed release (DR/EC) 81 mg PO DAILY 14 Days Qty: 14 0RF naproxen 250 mg tablet 250 - 500 mg PO BID PRNQty: 40 0RF Rx Instructions: take with a meal oxycodone 5 mg tablet 5 - 10 mg PO Q4H MDD 30 mg PRN (Reason: moderate to severe pain) Qty: 18 0RF Continued loratadine-pseudoephedrine [Loratadine-D] 10-240 mg tablet extended release 24 hr 1 tab PO DAILY Qty: 30 6RF Discontinued ibuprofen 200 mg tablet 200 mg PO Q6H PRN0RF Discharge Instructions Additional Instructions: Surgery: Left shoulder arthroscopy with rotator cuff repair (subscapularis and supraspinatus) biceps tenodesis, extensive debridement, and subacromial decompression. Activity: For 6 weeks, you should keep your arm at your side in a neutral position at all times except for physical therapy. Do not try to lift or raise your arm using your own muscles. You should use the sling whenever you are out of the house. You may have to adjust the abduction pillow or remove it for comfort. At home it is best to remove the sling and rest the arm on a pillow at your side or support the operative side with your other hand. You may allow the arm to dangle at your side. A physical therapy prescription will be sent electronically to begin in about 3 weeks. Prescriptions: Aspirin 81 mg take 1 daily to prevent a blood clot for 2 weeks Naproxen 250 mg take 1-2 every 12 hours with a meal as needed for moderate pain Oxycodone 5 mg take 1-2 every 4-6 hours as needed for severe pain You may use [id number] Tylenol (acetaminophen) as needed for mild pain. These pain medications may be taken all at once or in different combinations as needed. Also, recommend Colace (docusate) as a stool softener as surgery and pain medicine cause constipation. Dressings: Remove shoulder bandage after 3 days. Leave the sticky Steri-Strips in place until they fall off or remove them after you shower. Cover the incisions with Band-Aids or leave them open to air. You may shower after 5 days. Follow-up: 10-[address] Romero You may take off the leg compression stockings this evening at home. You may also leave them on a few days longer if you have a history of leg swelling or edema. Let us know right away if you develop any redness, drainage, fevers, chest pain, or trouble breathing. Do not drink alcohol or drive for at least 24 hours after anesthesia. Please call the office during business hours with any questions or concerns. Stand Alone Forms: Anesthesia Discharge Inst., Anes.Nerve Block Instructions Referrals: Rito Romero MD [ [facility] STAFF PHYSICIAN] - Discharge Orders Discharge Orders: Discharge Order (Routine); Ordered 10/19/21 Ordered By: Rito Romero DS: Diagnosis Discharge Diagnosis (1) Left rotator cuff tear: Status: Acute (2) Biceps tendinitis of left shoulder: Status: Acute (3) Impingement syndrome of both shoulders: Status: Acute (4) Bilateral shoulder bursitis: Status: Acute
== END 2021-10-19 16:38 | disposition home or self-care (01) ==
PROVIDERS: Visit Provider Student in an Organized Health Care Education/Training Program
PROC: (CPT 29827; principal; 2021-10-19 13:30)
DX: M75.102 Unspecified rotator cuff tear or rupture of left shoulder, not specified as traumatic (principal); M75.22 Bicipital tendinitis, left shoulder; M75.52 Bursitis of left shoulder; M75.42 Impingement syndrome of left shoulder
CPT/HCPCS: 29827; 29826; 29828; 29823; 76942; A4600; J0131; J0690; J1100; J1885; J2250; J2405

== ENCOUNTER → 2022-05-14 02:43 | Outpatient (CLI) | payer BC, SELFPAY ==
--- NOTE | 2022-05-14 17:30 | DI.MAMMO_ITS ---
Exam(s) MAMMO SCREENING EXAM: MAMMO SCREENING CLINICAL HISTORY: screening. TECHNIQUE: Bilateral full field digital CC and MLO mammographic images were obtained with 3D tomosyn thesis and utilizing computer aided detection (CAD). COMPARISON: Prior mammograms were reviewed, the most recent being March 2021.. FINDINGS: Fibroglandular tissue is again noted be moderately dense. There are no new spiculated masses nor malignant appearing microcalcification groups. Benign-appearing microcalcifications are again noted bilaterally. There is no significant architectural distortion nor skin thickening-retraction. IMPRESSION: No radiographic evidence of malignancy. Benign findings. BI-RADS Category 2 - Benign Findings Breast Density - Category C - Heterogeneously dense Breast density Category C or D implies that the patient has dense breast tissue. Dense breast tissue can make it harder to find cancer on a mammogram. Dense breast tissue is also associated with an incr eased risk of breast cancer. This information about the result of the mammogram report was provided to the patient to raise their awareness. Use this report when you speak with the patient about their risks for breast cancer, which includes their family history. At that time, you may recommend additional screening tests (Ultrasoun d or MRI) as these tests may add significant information. A negative radiographic report should not delay biopsy if a dominant or clinically suspicious mass is present. Up to ten percent of cancers are not identified on mammography. A negative report may reinforce clinical impression. Adenosis and dense breasts may obscure an underlying neoplasm. False positive reports average 6 to 10%. Patient will receive a letter notifying them of these results.
== END ==
PROVIDERS: PCP Nurse Practitioner; Visit Provider Nurse Practitioner Family
DX: Z12.31 Encounter for screening mammogram for malignant neoplasm of breast (principal); R92.8 Other abnormal and inconclusive findings on diagnostic imaging of breast
CPT/HCPCS: 77063; 77067

== ENCOUNTER 2022-10-15 01:40 | Outpatient (CLI) | payer BC, SELFPAY ==
--- NOTE | 2022-10-15 08:00 | DI.MRI_ITS ---
Exam(s) MR UPPER JOINT RT WO EXAM: MR UPPER JOINT RT WO CLINICAL HISTORY: Known rotator cuff tear,EVALUATE FOR REPAIR,M75.101. TECHNIQUE: Multiplanar multisequence MRI was performed. COMPARISON: None. FINDINGS: BONES: There is no fracture or contusion pattern. Degenerative subchondral cysts in a prominent les ser tuberosity. JOINTS:The acromioclavicular joint shows moderate spurring. The glenohumeral joint is normal. TENDONS: Supraspinatus: Thickening and intermediate signal. Full-thickness tear with retraction. No change i n appearance. Infraspinatus: Unremarkable. Subscapularis: Unremarkable. Teres Minor: Unremarkable. Biceps and [place]: Upper long head of the biceps tendon and anchor not well seen. Thickening and int ermediate signal in proximal biceps tendon. MUSCLES: Unremarkable. GLENOID LABRUM: Unremarkable on this noncontrast examination. Not well outlined by fluid. SOFT TISSUES: Unremarkable. OTHER: Subacromial and subdeltoid bursae show minimal fluid.. IMPRESSION: Stable appearance of tear and retraction of the supraspinatus tendon. Worsening tendinosis of superior portion of the biceps tendon. [place] not well seen. DATA REPOSITORY:
== END 2022-10-15 02:00 ==
LOC: DI 01:40
PROVIDERS: PCP Nurse Practitioner Family; Visit Provider Student in an Organized Health Care Education/Training Program
DX: M75.101 Unspecified rotator cuff tear or rupture of right shoulder, not specified as traumatic (principal)
CPT/HCPCS: 73221

== ENCOUNTER 2023-02-22 01:31 | Outpatient (CLI) | payer BC, SELFPAY ==
[2023-02-22 15:16] LABS: HCT 37.7 % (36.0-46.0); HGB 12.4 g/dL (11.2-15.7); MCH 29.2 pg (27.0-33.0); MCHC 32.9 % (32.0-36.0); MCV 89 fL (80-95); Platelet Count 198 10^3/uL (130-400); RBC 4.25 10^6/uL (3.93-5.22); RDW 12.3 % (11.7-14.6); WBC 6.83 10^3/uL (4.4-10.8)
[2023-02-22 16:34] LABS: ALT 38 U/L (14-59); AST 34 U/L (15-37); Alkaline Phosphatase 48 U/L (46-116); BUN 18 mg/dL (7-18); Bilirubin, Total 0.6 mg/dL (0.2-1.0); CREATININE 0.9 mg/dL (0.55-1.02); Calcium 9.1 mg/dL (8.5-10.1); Chloride 105 mmol/L (98-107); Estimated GFR 73.64 (mL/min/1.73m2); Glucose 88 mg/dL (74-106); Sodium 141 mmol/L (136-145); TSH (W/Ref FT4) 0.96 uIU/mL (0.36-3.74); Total Protein 7.3 g/dL (6.4-8.2)
== END 2023-02-22 01:32 | disposition home or self-care (01) ==
PROVIDERS: PCP Nurse Practitioner Family; Visit Provider Nurse Practitioner Family
DX: K42.9 Umbilical hernia without obstruction or gangrene; M25.562 Pain in left knee; M75.101 Unspecified rotator cuff tear or rupture of right shoulder, not specified as traumatic; N95.1 Menopausal and female climacteric states; Z00.00 Encounter for general adult medical examination without abnormal findings
CPT/HCPCS: 36415; 80053; 85027; 84443

== ENCOUNTER → 2023-08-05 03:25 | Outpatient (CLI) | payer BC, SELFPAY ==
--- NOTE | 2023-08-05 17:40 | DI.MAMMO_ITS ---
Exam(s) MAMMO SCREENING EXAM: MAMMO SCREENING CLINICAL HISTORY: screening TECHNIQUE: Bilateral full field digital CC and MLO mammographic images were obtained with 3D tomosyn thesis and utilizing computer aided detection (CAD). COMPARISON: Available for comparison. FINDINGS: Masses/Architectural Distortion: None seen. Microcalcifications: No suspicious pleomorphic-type are seen. Stable benign type calcifications are s een in both breasts. Skin Thickening/Nipple Retraction: None. IMPRESSION: 1. No significant interval change with no specific features of malignancy noted. 2. Unless there is more urgent need, screening mammography is recommended, as per [employer] guidelines. BI-RADS Category 2 - Benign Findings Breast Density - Category C - Heterogeneously dense Breast density category C or D implies that the patient has dense breast tissue. Dense breast tissue is very common and is not abnormal but dense breast tissue can make it harder to find cancer on a ma mmogram. Also, dense breast tissue may increase their breast cancer risk. This information about the result of the mammogram report was provided to the patient to raise their awareness. Use this report when you speak with the patient about their risks for breast cancer, which includes their family hist ory. At that time, you may recommend for more screening tests (Ultrasound or MRI) as they might be us eful based on their risk. A negative radiographic report should not delay biopsy if a dominant or clinically suspicious mass is present. Up to ten percent of cancers are not identified on mammography. A negative report may reinforce clinical impression. Adenosis and dense breasts may obscure an underlying neoplasm. False positive reports average 6 to 10%. Patient will receive a letter notifying them of these results.
== END ==
PROVIDERS: PCP Nurse Practitioner Family; Visit Provider Obstetrics & Gynecology
DX: Z12.31 Encounter for screening mammogram for malignant neoplasm of breast (principal)
CPT/HCPCS: 77063; 77067

== ENCOUNTER 2024-02-13 13:47 | Outpatient (REF) | payer BC, SELFPAY ==
[2024-02-13 12:25] LABS: Bilirubin Negative (Negative); Blood Negative (Negative); Clarity Clear (Clear); Glucose Negative (Negative); Ketones Negative (Negative); Leukocyte Esterase Negative (Negative); Nitrite Negative (Negative); Specific Gravity 1.015 (1.005-1.025); Urobilinogen 0.2 mg/dL (Up to 0.2)
== END 2024-02-13 13:48 | disposition home or self-care (01) ==
LOC: LBN 13:47
PROVIDERS: PCP Nurse Practitioner Family; Visit Provider Nurse Practitioner Family
DX: R35.0 Frequency of micturition (principal)
CPT/HCPCS: 81003

== ENCOUNTER 2024-04-24 09:35 | Outpatient (CLI) | payer BC, SELFPAY ==
--- NOTE | 2024-04-24 08:15 | DI.MRI_ITS ---
Exam(s) MR UPPER JOINT RT WO EXAM: MR UPPER JOINT RT WO CLINICAL HISTORY: eval PROXIMAL BICEPS TENDON, RUPTURE, S46.211A STRAIN MUSCLE FASCIA. TECHNIQUE: Multiplanar multisequence MRI was performed. COMPARISON: None. FINDINGS: BONES: There is no fracture or contusion pattern. Spurring at the greater tuberosity. Spurring at tip of the acromion. Degenerative cysts in the humeral head. JOINTS:The acromioclavicular joint shows mild inferior spurring. The glenohumeral joint shows a mode rate effusion, increasing from prior. TENDONS: Supraspinatus: Thickening and high signal. Stable appearance of full-thickness tear and retraction. Infraspinatus: Thickening and high signal consistent with tendinosis. Is a appears somewhat worse wh en compared the previous exam. Subscapularis: Unremarkable. [place]: Unremarkable. Biceps and [place]: Full-thickness tear with retraction. Further retraction compared with the prior e xam. [place] appears edematous. MUSCLES: Unremarkable. GLENOID LABRUM: Unremarkable on this noncontrast examination. SOFT TISSUES: Unremarkable. OTHER: Subacromial and subdeltoid bursae show small amount of fluid. Fluid also noted in subcoracoi d bursa, increasing from prior.. IMPRESSION: Full-thickness tear with retraction of the supraspinatus tendon, similar appearance to prior. Full-thickness tear and retraction of the biceps tendon. Joint effusion increasing from prior. DATA REPOSITORY:
== END 2024-04-24 09:55 ==
LOC: DI 09:35
PROVIDERS: PCP Nurse Practitioner Family; Visit Provider Student in an Organized Health Care Education/Training Program
DX: M75.121 Complete rotator cuff tear or rupture of right shoulder, not specified as traumatic (principal)
CPT/HCPCS: 73221

== ENCOUNTER 2024-04-24 13:53 | Outpatient (CLI) | payer BC, SELFPAY ==
[2024-04-24 12:53] LABS: HCT 39.5 % (36.0-46.0); MCH 29.4 pg (27.0-33.0); MCHC 32.9 % (32.0-36.0); MCV 89 fL (80-95); MPV 11.6 fL (8.0-11.0); Platelet Count 187 10^3/uL (130-400); RBC 4.42 10^6/uL (3.93-5.22); RDW 12.3 % (11.7-14.6); RDW-SD 40.4 fL; WBC 6.28 10^3/uL (4.4-10.8)
[2024-04-24 13:23] LABS: ALT 21 U/L (14-59); AST 15 U/L (15-37); Alkaline Phosphatase 43 U/L (46-116); Anion Gap 3.8 mmol/L (3-11); BUN 23 mg/dL (7-18); Bilirubin, Total 0.42 mg/dL (0.2-1.0); CO2 33.2 mmol/L (21.0-32.0); CREATININE 0.8 mg/dL (0.55-1.02); Calcium 9.4 mg/dL (8.5-10.1); Chloride 105 mmol/L (98-107); Glucose 91 mg/dL (74-106); Potassium 4.4 mmol/L (3.5-5.1); Sodium 142 mmol/L (136-145); Total Protein 7.4 g/dL (6.4-8.2)
== END 2024-04-24 13:54 | disposition home or self-care (01) ==
LOC: LBO 13:53
PROVIDERS: PCP Nurse Practitioner Family; Visit Provider Nurse Practitioner Family
DX: Z00.00 Encounter for general adult medical examination without abnormal findings (principal); M25.562 Pain in left knee; K42.9 Umbilical hernia without obstruction or gangrene; R35.0 Frequency of micturition
CPT/HCPCS: 36415; 80053; 85027

== ENCOUNTER 2024-05-08 06:15 | Day surgery (SDC) | payer BC, SELFPAY ==
[2024-05-08] VITALS (20 sets, daily range): BP systolic 97–129; BP diastolic 52–77; PULSE 41–59; RESP 13–19; TEMP 35.8–36.6; O2SAT 97–100; BMI 22.9
[2024-05-08] MEDS: Lactated Ringers 1,000 ML 30 ML IV (06:53)
--- NOTE | 2024-05-08 07:04 | ANES.PREOP_ITS ---
General Info Date of Service Date Performed: 05/08/24 Height: 5 ft 5 in Weight: 62.6 kg Body Mass Index (BMI): 22.9 Surgical Procedure: Operation Date: 05/08/24 08:40 Proposed Procedure Side Surgeon p Shoulder Arthroscopy, possible open bicep, subacromial decompression Right Rito Romero MD Meds Allergies and Home Medications Allergies Allergy/AdvReac Type Severity Reaction Status Date / Time red (food color) Allergy Intermediate Mouth Verified 05/08/24 06:18 chino, tongue swelling erythromycin base AdvReac Intermediate [place]omache Verified 05/08/24 06:18 Home Medication ?Medication ?Instructions ?Recorded cholecalciferol (vitamin D3) 25 25 mcg PO DAILY 04/12/22 mcg (1,000 unit) capsule multivitamin (Daily Multi-Vitamin 1 tab PO DAILY 04/12/22 tablet) estradiol 0.01% (0.1 mg/gram) 1 g vaginal DAILY #42.5 grams 10/07/23 vaginal cream cetirizine 10 mg tablet 10 mg PO DAILY PRN allergies 05/07/24 naproxen 250 mg tablet 250 - 500 mg (1 - 2 x 250 mg) PO 05/08/24 BID PRN moderate pain and swelling #40 tabs oxycodone 5 mg tablet 5 - 10 mg (1 - 2 x 5 mg) PO .q4-6h 05/08/24 PRN severe pain #9 tabs Current Visit Medications: Current Medications Generic Name Dose Route Start Last Admin Trade Name Freq PRN Reason Stop Dose Admin Ringer's Solution 1,000 mls @ 30 mls/hr 05/08/24 06:00 05/08/24 06:53 IV 05/08/24 23:59 30 mls/hr INFUSION NOEL Administration Cefazolin Sodium/Dextrose 2 gm in 50 mls @ 100 mls/hr 05/08/24 06:00 Ancef Duplex IVPB 05/08/24 23:59 PREOP NOEL Tranexamic Acid/Sodium Chloride 1,000 mg in 100 mls @ 600 mls/hr 05/08/24 06:00 IVPB 05/08/24 23:59 PREOP NOEL IV Miscellaneous Supplies 1 each 05/08/24 06:00 Iv Access IV 05/08/24 23:59 DIRECTED NOEL Sodium Chloride 0 ml 05/08/24 06:00 Normal Saline Flush 10 Ml Syr IV 05/08/24 23:59 PRN PRN Sodium Chloride 0 ml 05/08/24 06:00 Normal Saline 10 Ml Vial IJ 05/08/24 23:59 DIRECTED PRN Sterile Water 0 ml 05/08/24 06:00 Water,Injection,Sterile 10 Ml Vial IJ 05/08/24 23:59 DIRECTED PRN PFSH Active Problems Active Problems: Problem Status Onset Code Rupture of right proximal biceps tendon Acute S46.211A Atrophic vaginitis Acute N95.2 COVID-19 Acute ~05/04/23 U07.1 Umbilical hernia without mention of obstruction or gangrene Acute K42.9 Indirect left inguinal hernia Acute K40.90 Right rotator cuff tear Acute M75.101 Knee pain, left Chronic M25.562 Medical History Medical History Adhesive capsulitis of left shoulder Impingement syndrome of both shoulders Bilateral shoulder bursitis Biceps tendinitis of right shoulder Left rotator cuff tear Biceps tendinitis of left shoulder Menopause syndrome Increased body mass index (BMI) Allergic reaction (09/19/15) ? red food dye Family history of malignant neoplasm of ovary (10/28/12) Family hx-breast malignancy (10/28/12) Chronic type B viral hepatitis Hep B surface antigen Negative during 2000 Surgical History Surgical History Status post arthroscopy of left shoulder (10/19/21) Status post left shoulder arthroscopy with rotator cuff repair, biceps tenodesis, extensive debridement and subacromial decompression varicosities removed Oophrectomy, Left (~1997) Dermoid cyst Colonoscopy - IV Sedation (09/24/16) Tobacco Smoking/Tobacco Use Status: Former Tobacco Use Second hand exposure: Yes Alcohol Alcohol Intake: former Substance Use Substance use: Never Substance use type: does not use Counseling provided: none Vital Signs and Lab Results Vital Signs Most Recent Vital Signs in EMR: Most Recent Vital Signs Temp Pulse Resp BP Pulse Ox 36.5 C 56 L 16 125/69 100 05/08/24 06:21 05/08/24 06:21 05/08/24 06:21 05/08/24 06:21 05/08/24 06:21 Lab Results Blood Type / Crossmatch: No Data to Display Complete Blood Count: White Blood Count 6.28 10^3/uL (4.4-10.8) 04/24/24 12:48 Red Blood Count 4.42 10^6/uL (3.93-5.22) 04/24/24 12:48 Hemoglobin 13.0 g/dL (11.2-15.7) 04/24/24 12:48 Hematocrit 39.5 % (36.0-46.0) 04/24/24 12:48 Platelet Count 187 10^3/uL (130-400) 04/24/24 12:48 Complete Metabolic Panel: Sodium 142 mmol/L (136-145) 04/24/24 12:48 Potassium 4.4 mmol/L (3.5-5.1) 04/24/24 12:48 Chloride 105 mmol/L (98-107) 04/24/24 12:48 Carbon Dioxide 33.2 mmol/L (21.0-32.0) H 04/24/24 12:48 BUN 23 mg/dL (7-18) H 04/24/24 12:48 Creatinine 0.8 mg/dL (0.55-1.02) 04/24/24 12:48 Est GFR (CKD-EPI 2020) 84.30 (mL/min/1.73m2) 04/24/24 12:48 Calcium 9.4 mg/dL (8.5-10.1) 04/24/24 12:48 Albumin 4.0 g/dL (3.4-5.0) 04/24/24 12:48 Glucose 91 mg/dL (74-106) 04/24/24 12:48 Liver Function Panel: Alanine Aminotransferase (ALT/SGPT) 21 U/L (14-59) 04/24/24 12: 48 Aspartate Amino Transf (AST/SGOT) 15 U/L (15-37) 04/24/24 12:48 Coagulation Panel: No Data to Display Cardiac Panel: No Data to Display Arterial Blood Gas: No Data to Display Venous Blood Gas: No Data to Display Pancreas Panel: No Data to Display Thyroid Panel: No Data to Display Infectious Disease: No Data to Display Blood Cultures: No Data to Display Toxicology Panel: No Data to Display Anesthesia Assessment and Plan Anesthesia History Personal History: No History of Anesthesia Complications Family History: No Family History of Anesthesia Complications Exercise Tolerance Exercise Tolerance: Metabolic Equivalents>4 Pertinent Negatives Pertinent Negatives: No Symptoms of GERD Cardiac & Pulmonary Exam Cardiac Exam: Normal S1/S2 Heart Sounds Pulmonary Exam: Clear Bilateral Breath Sounds Implantable Cardiac Device Does patient have a Pacemaker or an ICD?: No Airway Exam Known Difficult Airway: No Mallampati Class: 2 Mouth Opening: Normal (> 3cm) Thyromental Distance: Greater than 3 cm Neck Range of Motion: Full ROM Neck Circumference: Normal Teeth Condition: Normal Dentition ASA Classification ASA Score: ASA 2 Emergency Case?: No NPO Status NPO Status: NPO Clears >2 hours, Solids >8 hours Anesthesia Plan Resuscitation Status: Full Code Anesthesia Technique: General Anesthesia Airway Planned: Endotracheal Tube Pain Management: Surgeon and patient request nerve block Monitors Used: Standard Monitors
--- NOTE | 2024-05-08 07:05 | W.PM.DSUDISC ---
Date of service: 05/08/24 Time of Service: 12:00 Discharge Plan Disposition Patient Disposition: Home Condition: Stable Discharge Details Attending Provider: Rito Romero Primary Care Provider: Heather Woods Home Meds and New Rx's Prescriptions: New naproxen 250 mg tablet 250 - 500 mg PO BID PRN (Reason: moderate pain and swelling) Qty: 40 0RF oxycodone 5 mg tablet 5 - 10 mg PO .q4-6h MDD 30 mg PRN (Reason: severe pain) Qty: 9 0RF Continued multivitamin [Daily Multi-Vitamin] Tablet 1 tab PO DAILY cholecalciferol (vitamin D3) 25 mcg (1,000 unit) capsule 25 mcg PO DAILY estradiol 0.01 % (0.1 mg/gram) cream 1 g vaginal DAILY Qty: 42.5 2RF Rx Instructions: for 14 days cetirizine 10 mg tablet 10 mg PO DAILY PRN (Reason: allergies) Patient Comments: I only take it when I have symptoms. Discharge Instructions Additional Instructions: Surgery: Right shoulder arthroscopy with rotator cuff repair (subscapularis and supraspinatus), extensive debridement, subacromial decompression and open biceps tenodesis Activity: For 6 weeks, you should keep your arm at your side in a neutral position at all times except for physical therapy. Do not try to lift or raise your arm using your own muscles. You should use the sling whenever you are out of the house. At home it is best to remove the sling and rest the arm on a pillow at your side or support the operative side with your other hand. You may allow the arm to dangle at your side. A physical therapy prescription will be sent electronically to begin in about 3 weeks. Standard protocol. Prescriptions: Naproxen 250 mg take 1-2 every 12 hours with a meal as needed for moderate pain Oxycodone 5 mg take 1-2 every 4-6 hours as needed for severe pain You may use [id number] Tylenol (acetaminophen) as needed for mild pain. These pain medications may be taken all at once or in different combinations as needed. Also, recommend Colace (docusate) as a stool softener as surgery and pain medicine cause constipation. You may try [id number] diphenhydramine (Benadryl) 25-50 mg nightly as a sleep aid Dressings: Remove shoulder bandage after 3 days. Leave the sticky Steri-Strips in place until they fall off or remove them after you shower. Cover the incisions with Band-Aids or leave them open to air. The biceps bandage (inside upper arm) is glued on separately. You may leave this one on a few days longer if it is difficult to remove. There is also glue underneath this bandage that can be left in place until it peels off. You may shower after 5 days. Follow-up: 10-[address] oRmero You may take off the leg compression stockings this evening at home. You may also leave them on a few days longer if you have a history of leg swelling or edema. Let us know right away if you develop any redness, drainage, fevers, chest pain, or trouble breathing. Do not drink alcohol or drive for at least 24 hours after anesthesia. Please call the office during business hours with any questions or concerns. Discharge Orders Discharge Orders: Discharge Order (Routine); Ordered 05/08/24 Ordered By: Stella Ledezma DS: Diagnosis Discharge Diagnosis (1) Rupture of right proximal biceps tendon: Status: Acute (2) Right rotator cuff tear: Status: Acute
--- NOTE | 2024-05-08 07:09 | W.PM.OP ---
Date of service: 05/08/24 Time of Service: 08:30 Operative Note Operative Note DATE OF PROCEDURE: 05/08/24 PRE-OP DIAGNOSIS: Right: 1. Rotator cuff tear 2. Proximal biceps rupture 3. Bursitis POST-OP DIAGNOSIS: same PROCEDURE: Right: 1. Rotator cuff repair, CPT# 89447. This involved suture repair of the subscapularis and suture anchor repair of the supraspinatus 2. Open biceps tenodesis, CPT# 66652. This involved reattaching the long head of the biceps tendon to the proximal humerus in the sub-pectoral area of the bicipital groove at the correct tension. 3. Extensive debridement, CPT# 15003. This involved using arthroscopic hand instruments, power instruments, and radiofrequency instruments to debride SLAP tearing, remove long irregular biceps tendon stump, debride rotator interval synovitis and subscapularis capsular adhesions. 4. Subacromial decompression with partial acromioplasty, CPT# 56024. This involved using arthroscopic power instruments and a radiofrequency wand to complete a bursectomy and smooth the undersurface of the acromion. The assistant director of nursing was medically required in order to help assist in techniques above, which require positioning the arm, holding the arthroscope, and manipulating multiple instruments and sutures at the same time. This cannot be done without the help of an experienced assistant director of nursing. SURGEON: Rito Romero SERVER DEVELOPER: Stella Ledezma ANESTHESIA TYPE: Local By Surgeon, General LMA/ETT and Primary Nerve Block Refer to Anesthesia Record ESTIMATED BLOOD LOSS: 5 PATHOLOGY: none sent COMPLICATIONS: None Patient was transported to: PACU Patient's condition: stable Implants: Arthrex: 4.75mm SwiveLocks x 1 and unicortical Proximal Biceps Tenodesis Button Indications: The patient was diagnosed with the above conditions and appropriately indicated for surgical intervention. Please see complete medical record for details. Findings: Exam under anesthesia: Obvious nikunj distal biceps deformity. Full shoulder range of motion. Glenohumeral joint: Moderate generalized chondromalacia. Intact infraspinatus articular side. Obvious full-thickness supraspinatus rotator cuff tear. Biceps rupture with long irregular biceps tendon remnant stump attached to superior labrum which also exhibited SLAP tear somewhat degenerative and fraying. Moderate anterior labral fraying. Subscapularis split tearing possibly relating to previous biceps tendon intrasubstance medialization with the torn superior part of the subscapularis somewhat scarred adhesions to the anterior capsule. Subacromial space: Moderately significant bursitis. Diminutive space as expected. Remarkably small bursal supraspinatus central defect. Procedure Description: In the operating room, general anesthesia was induced. Bilateral shoulders were examined. The patient was positioned in the beachchair position. All bony prominences were well-padded. Preoperative antibiotics were administered. The shoulder was prepped and draped in the usual sterile fashion. The correct patient, procedure, and side of the procedure were all verified prior to incision. 10 cc of 0.25% bupivacaine with epinephrine was infiltrated about a 3 cm longitudinal incision at the inferior margin of the pectoralis major localized over the long head of the biceps tendon. Blunt and sharp dissection were used to expose the tendon in the bicipital groove. The tendon was brought out of the wound and kept off the skin on top of a blue towel. The correct location for sub-pectoral fixation was localized, prepped with a rasp, and then drilled with a 3.2 mm drill pin in a unicortical fashion. Using a fiber loop suture the tendon was prepped from the musculotendinous junction a few centimeters proximal. The excess tendon was amputated. The free suture ends were then passed through the unicortical button implant. The drill pin was removed and the implant was placed into the humeral intramedullary canal. The button was flipped and the sutures were tensioned bringing the tendon down to bone. Tension and fixation were then tested and found to be appropriate. The free ends of the suture were passed around either side of the tendon and then tied compressing tendon to bone. The wound was copiously irrigated with normal saline. A moist sponge was placed in the incision. Starting through the posterior portal a standard complete diagnostic arthroscopy was performed of the glenohumeral joint including inspection of the long head of the biceps, anterior and superior labrum, subscapularis tendon, supraspinatus and infraspinatus tendons, and axillary recess. The glenoid and humeral head cartilage as well as the posterior labrum were inspected from an anterior viewing portal. Significant findings and interventions noted above. The subscapularis was freed from anterior adhesions. The upper portion probably third was intrasubstance from the remaining portion that was attached to the lesser tuberosity reasonably well. A suture?only repair was done using the 90 degree lasso and suture tape cerclage ring and securing the central to lateral portion of the upper tendon closing the repair defect nicely. Starting through the posterior portal, the arthroscope was directed into the subacromial space. A lateral 50 yard line lateral portal was created. A combination of power instruments and a radiofrequency ablator were used to debride bursitis anteriorly, posteriorly, and laterally as well as expose and smooth bone spurring on the undersurface of the acromion. The coracoacromial ligament was partially released. The bursectomy was completed viewing laterally and working from posteriorly and the rotator cuff was thoroughly inspected with findings noted above. The bursal defect was remarkably small given the obvious full-thickness tear on the articular side and the MRI findings of a thin bursal layer was actually rotator cuff. The cuff grasper measured the tear size which although full-thickness was still small given the small patient's stature about a centimeter medial lateral anterior to posterior with again a small exit of well opposed tissue bursal laterally. The tear margins had good tissue. Working through the defect the greater tuberosity and rotator cuff was debrided to optimize bone and tendon healing of the somewhat chronic tear. Appropriate reduction in arm position confirmed prior to proceeding with a speed fix type repair using the Digital Orchid self retrieving suture passer to place a widely spaced inverted horizontal mattress FiberTape and a more central medial FiberLink in cinched and ripstop configuration. The 3 suture repair tails were brought out appropriate laterally across the greater tuberosity with excellent fixation strength and reduction of the tear and secured to a 4.75 mm SwiveLock anchor using the undersized punch for best fixation strength. The repair was stable through testing and probing. The extra double loaded sliding repair sutures did not need to be used. The shoulder was drained of arthroscopic fluid. All portal sites were copiously irrigated. Biceps incision was irrigated again and subcutaneous tissue was closed using 3-0 Monocryl in a buried interrupted fashion. Skin was closed using 3-0 Monocryl in a buried subcuticular running fashion. Skin glue was applied over the incision. Mastisol was applied about the incision. The incision was covered with Telfa, gauze, and covered with a Tegaderm dressing. The portals were closed using 3-0 Monocryl in a buried fashion and then covered with Mastisol, Steri-Strips, Xeroform, dry gauze, and ABDs. The dressings were covered and secured with Medipore tape. The operative extremity was placed into a sling for immobilization. The patient awoke from anesthesia without complication and was transferred to the recovery room in a stable condition.
--- NOTE | 2024-05-08 08:06 | W.ANESNERVE ---
Nerve Block Single Injection Procedure Date and Time Date Performed: 05/08/24 Procedure Start: 07:47 Location Where Procedure Performed Procedure Location: Day Surgery Unit Reason Performed: Postoperative Analgesia Requesting Provider: Rito Romero Timeout Performed Timeout Performed: Yes Monitoring Used ECG, Blood Pressure and SpO2 Sterility Sterility: Hand Hygiene, Surgical Cap, Surgical Mask, Sterile Gloves and Chlorhexidine Sedation Given During Procedure Sedation Given (Indicate Dose Given): Versed IV Dose:: 2 mg Patient Mental Status Patient Mental Status: Sedate with meaningful communication Nerve Block 1st Nerve Block: Laterality: Right Block Type: Interscalene Ultrasound Image Saved?: Yes Needle / Catheter Used: 100mm SonoPlex II Local Anesthetic Bolus (Indicate Dose Given): Lidocaine used for local infiltration of skin, Injected in 3-5ml increments after negative blood aspiration, Bupivacaine 0.5% Dose:: 10 and Exparel Dose:: 10 ml Additives (Indicate Dose Given): Normal Saline Ultrasound: Sterile probe cover and gel used Nerve Stimulator: Supplement to Ultrasound use, Expected parasthesia or motor response elicited and No twitch or parasthesia noted < 0.5 mA (Noted appropriate motor response, withdrew until ceased, and injected) Paresthesia: None Procedure Tolerated: No Complications and Patient tolerated well Procedure Outcome: Successful Performed By: Burak Mariee
[2024-05-08] MEDS: ceFAZolin 2 GM/50 ML BAG IVPB (08:50)
[2024-05-08] MEDS: TRANEXAMIC ACID/SOD. CHL. 1,000 MG/100 ML BAG 600 MG IVPB (09:03)
[2024-05-08] MEDS: Bupivacaine 0.25% Pres-Free W/EPI 30 ML VIAL (09:35)
[2024-05-08] MEDS: EPINEPHrine 10 MG/10 ML ML (10:50)
[2024-05-08] MEDS: HYDROmorphone 2 MG/ML SYR IVP (12:07)
--- NOTE | 2024-05-08 13:40 | W.ANESPOSTOP ---
Postoperative Evaluation Date, Time and Location Date Performed: 05/08/24 Time Performed: 12:42 Patient Location: Day Surgery Unit Vital Signs Most Recent Imported Vital Signs: Most Recent Vital Signs Temp Pulse Resp BP Pulse Ox 35.8 C L 44 L 14 124/77 100 05/08/24 13:03 05/08/24 13:03 05/08/24 13:03 05/08/24 13:03 05/08/24 13:03 Pain Score Most Recent Pain Score: Most Recent Pain Score Pain Level 0 05/08/24 13:03 Assessment Mental Status: Awake (Alert & Oriented to Patient Baseline) Airway and Respiratory Function: Patent airway with normal (patient baseline) respiratory exam Cardiovascular Function: Hemodynamically Stable Hydration Status: Adequately Hydrated Nausea & Vomiting: No Nausea or Vomiting Pain: Pain is tolerable per patient Peripheral Nerve Block: Patient did not receive a nerve block
== END 2024-05-08 15:25 | disposition home or self-care (01) ==
LOC: SUR 14:16
PROVIDERS: PCP Nurse Practitioner Family; Visit Provider Student in an Organized Health Care Education/Training Program
PROC: (CPT 29805; principal; 2024-05-08 08:30)
DX: S46.211A Strain of muscle, fascia and tendon of other parts of biceps, right arm, initial encounter (principal); M75.101 Unspecified rotator cuff tear or rupture of right shoulder, not specified as traumatic; X58.XXXA Exposure to other specified factors, initial encounter; M75.51 Bursitis of right shoulder
CPT/HCPCS: 23430; 29827; 29823; 29826; 76942; C9290; J0131; J0665; J0690; J1100; J1170; J1885; J2250; J2371; J2405; J2704

== ENCOUNTER 2024-08-21 12:04 | Outpatient (CLI) | payer BC, SELFPAY ==
[2024-08-21 16:31] LABS: Lab Add On Test DONE
[2024-08-24 17:58] LABS: Blueberry, IgE <0.10 kU/L (<0.70)
[2024-08-25 11:34] LABS: Grape IgE <0.10 kU/L (<0.70)
[2024-08-27 17:37] LABS: Pepper Cayenne IgE <0.35 kU/L (<0.35)
== END 2024-08-21 12:05 | disposition home or self-care (01) ==
LOC: LBO 12:05
PROVIDERS: PCP Nurse Practitioner Family; Visit Provider Physician Assistant
DX: Z91.018 Allergy to other foods (principal); T78.1XXA Other adverse food reactions, not elsewhere classified, initial encounter; K14.6 Glossodynia
CPT/HCPCS: 36415; 86003

== ENCOUNTER 2024-10-21 02:12 | Outpatient (CLI) | payer BC, SELFPAY ==
--- NOTE | 2024-10-21 12:45 | DI.MAMMO_ITS ---
Exam(s) MAMMO SCREENING EXAM: MAMMO SCREENING CLINICAL HISTORY: screening TECHNIQUE: Mammograms were interpreted according to the usual protocol including computer analysis w [employer] CAD system, tomosynthesis and C-view imaging. COMPARISON: 2014 through 2022 FINDINGS: The breasts are composed of scattered fibroglandular densities, Breast Density category B. No suspicious masses or suspicious microcalcifications are seen. No skin thickening or abnormal axillary lymph nodes are seen. There has been no significant change from prior exams. IMPRESSION: BI-RADS Category 1, Negative mammogram Yearly screening mammography is recommended. Breast Density - Category B, scattered fibroglandular densities. A negative radiographic report should not delay biopsy if a dominant or clinically suspicious mass is present. Up to ten percent of cancers are not identified on mammography. A negative report may reinforce clinical impression. Adenosis and dense breasts may obscure an underlying neoplasm. False positive reports average 6 to 10%. Patient will receive a letter notifying them of these results.
== END 2024-10-21 02:32 ==
LOC: DI 02:12
PROVIDERS: PCP Nurse Practitioner Family; Visit Provider Obstetrics & Gynecology
DX: Z12.31 Encounter for screening mammogram for malignant neoplasm of breast (principal); R92.323 Mammographic fibroglandular density, bilateral breasts
CPT/HCPCS: 77063; 77067

== ENCOUNTER 2025-01-26 01:17 | Outpatient (CLI) | payer BC, SELFPAY ==
--- NOTE | 2025-01-26 16:02 | DI.RAD_ITS ---
Exam(s) XR KNEE LT 3V AP,LAT,ISAIAH EXAM: XR KNEE LT 3V AP,LAT,ISAIAH CLINICAL HISTORY: Left knee pain, swelling and stiffness,M17.12. TECHNIQUE: 2D digital imaging was performed of the left knee. Three images were obtained. AP, late ral and PA tunnel views were obtained. COMPARISON: CR XR KNEE LT 4V+ from 07/05/2020 FINDINGS: BONES: No acute fracture is present. No bony destructive lesion is seen. JOINTS: Tricompartment degenerative changes are present consisting predominantly of osteophytes. The re is mild narrowing of the patellofemoral joint. No joint effusion is seen. No loose body. SOFT TISSUE: Normal. IMPRESSION: Mild degenerative changes of the left knee. DATA REPOSITORY: RADIATION DOSE DELIVERED:
== END 2025-01-26 01:37 ==
LOC: DI 01:17
PROVIDERS: PCP Nurse Practitioner Family; Visit Provider Nurse Practitioner Family
DX: M17.12 Unilateral primary osteoarthritis, left knee (principal)
CPT/HCPCS: 73562

== ENCOUNTER 2025-03-22 18:18 | Outpatient (REF) | payer BC, SELFPAY ==
[2025-03-22 21:20] LABS: Abs Immature Grans 0.03 10^3/uL (0.0-0.06); HCT 36.2 % (36.0-46.0); HGB 12.0 g/dL (11.2-15.7); Immature Grans % 0.6 %; MCH 29.1 pg (27.0-33.0); MCHC 33.1 % (32.0-36.0); MCV 88 fL (80-95); MPV 12.3 fL (8.0-11.0); Platelet Count 164 10^3/uL (130-400); RBC 4.12 10^6/uL (3.93-5.22); RDW 13.2 % (11.7-14.6); RDW-SD 42.9 fL; WBC 5.36 10^3/uL (4.4-10.8)
[2025-03-22 21:29] LABS: WBC 0-2 HPF (0-5)
[2025-03-22 21:33] LABS: ALT 74 U/L (14-59); AST 31 U/L (15-37); Albumin 3.5 g/dL (3.4-5.0); Alkaline Phosphatase 119 U/L (46-116); Anion Gap 7.7 mmol/L (3-11); BUN 10 mg/dL (7-18); Bilirubin, Total 0.7 mg/dL (0.2-1.0); CO2 27.3 mmol/L (21.0-32.0); Calcium 8.6 mg/dL (8.5-10.1); Chloride 102 mmol/L (98-107); Estimated GFR 64.09 (mL/min/1.73m2); Glucose 111 mg/dL (74-106); Potassium 4.4 mmol/L (3.5-5.1); Sodium 137 mmol/L (136-145); Total Protein 6.6 g/dL (6.4-8.2)
[2025-03-24 11:06] LABS: Lyme Ab w Rflx to Lyme Confirm Negative (Negative)
[2025-03-26 13:42] LABS: B. miyamotoi PCR Negative (Negative); Babesia divergens/MO-1 Negative (Negative); Ehrlichia muris eauclairensis Negative (Negative)
== END 2025-03-22 18:19 | disposition home or self-care (01) ==
LOC: LBN 18:18
PROVIDERS: PCP Nurse Practitioner Family; Visit Provider Physician Assistant Medical
DX: R31.9 Hematuria, unspecified (principal); R68.89 Other general symptoms and signs
CPT/HCPCS: 80053; 87798; 81015; 85025; 86618; 87086

== ENCOUNTER 2025-03-30 21:13 | Outpatient (REF) | payer BC, SELFPAY ==
[2025-03-30 21:11] LABS: Glucose Negative (Negative)
[2025-03-30 21:16] LABS: C & S Indicated? No; RBC 0-2 HPF (0-2); WBC 0-2 HPF (0-5)
== END 2025-03-30 21:14 | disposition home or self-care (01) ==
LOC: LBN 21:13
PROVIDERS: PCP Nurse Practitioner Family; Visit Provider Family Medicine
DX: R31.9 Hematuria, unspecified (principal)
CPT/HCPCS: 81003; 81015

== ENCOUNTER 2025-04-06 09:46 | Outpatient (CLI) | payer BC, SELFPAY ==
[2025-04-06 12:55] LABS: ALT 46 U/L (14-59); AST 26 U/L (15-37); Albumin 3.9 g/dL (3.4-5.0); Alkaline Phosphatase 84 U/L (46-116); Anion Gap 5.3 mmol/L (3-11); BUN 20 mg/dL (7-18); Bilirubin, Total 0.7 mg/dL (0.2-1.0); CO2 31.7 mmol/L (21.0-32.0); Calcium 9.5 mg/dL (8.5-10.1); Chloride 104 mmol/L (98-107); Estimated GFR 83.78 (mL/min/1.73m2); Glucose 69 mg/dL (74-106); Potassium 4.5 mmol/L (3.5-5.1); Sodium 141 mmol/L (136-145); Total Protein 7.7 g/dL (6.4-8.2)
[2025-04-07 16:05] LABS: Hepatitis C Ab w Rflx HCV PCR Negative (Negative)
== END 2025-04-06 09:47 | disposition home or self-care (01) ==
PROVIDERS: PCP Nurse Practitioner Family; Visit Provider Family Medicine
DX: R79.89 Other specified abnormal findings of blood chemistry (principal); Z11.59 Encounter for screening for other viral diseases
CPT/HCPCS: 36415; 80053; 86803

== ENCOUNTER 2025-04-08 12:43 | Outpatient (REF) | payer BC, SELFPAY ==
--- NOTE | 2025-04-08 11:30 | PAPFT_PTH ---
PATIENT: Yolanda Chavez LOC: [facility] U#:[id number] AGE/SX: 59/F ROOM: RE04/08/[address]: Anne Sandoval MD : [id number] BED: DIS: 04/08/2025 SPEC #: [id number] RECD: 04/08/25 17:53 STATUS: [place] REQ #: [id number] DAVID: 04/08/25 11:[address]: Anne Sandoval DEPT: [facility] Cytology RECD BY: Clarissa Eubanks ENTERED: 04/08/25 17:53 SP TYPE: PAPFT OTHR DR: Heather Woods, TYSON Tissues: 1 - CX/ENDOCX FOR PAP SMEARS Procedures: PAP THIN PREP/[facility] Screening HPV DNA PROBE Comments: [id number] (HPV 16 & 18/45)
== END 2025-04-08 12:44 | disposition home or self-care (01) ==
LOC: LBN 12:43
PROVIDERS: PCP Nurse Practitioner Family; Visit Provider Obstetrics & Gynecology
DX: Z12.4 Encounter for screening for malignant neoplasm of cervix (principal); R87.618 Other abnormal cytological findings on specimens from cervix uteri
CPT/HCPCS: 88142; 87624